=== PATIENT | female | born 1970 | race Caucasian/White ===

== ENCOUNTER 2022-06-23 15:37 | Emergency (ER) | payer MEDICAID, SELFPAY ==
[2022-06-23 17:00] VITALS: BMI 38.7
--- NOTE | 2022-06-23 17:12 | ED_ITS ---
HPI - Back Pain/Injury General: Chief Complaint: Back Pain/Injury Stated Complaint: Tingling and pain through left arm and leg Time Seen by Provider: 06/23/22 17:10 History of Present Illness: 51-year-old female comes in today with complaints of low back pain, left hip pain and left knee pain. Patient reports symptoms for about 3 to 4 days with worsening pain to the left knee. Patient reports tenderness runs on the anterior part of the left knee area. Patient does have a history of chronic back pain and fibromyalgia. Patient does already take hydrocodone and ibuprofen for pain. Patient appears nontoxic. Patient appears in mild pain. Associated symptoms: Deny fever(s) Review of Systems Const: Denies: fever(s) Card: Denies: chest pain Resp: Denies: dyspnea Musc: Reports: extremity pain Neuro: Reports: numbness in extremities (Left arm) Physical Exam Const: COMMON NORMALS: alert HENMT: COMMON NORMALS: normocephalic and Normal external nose present HEAD & SCALP: normocephalic NOSE: Normal external nose present MOUTH: Normal oral and palatal mucosa present Neck/C-Spine: COMMON NORMALS: full ROM CERVICAL SPINE: No Cervical spine tenderness Resp: COMMON NORMALS: normal respiratory effort Cardio: COMMON NORMALS: regular rate and regular rhythm RATE: regular rate RHYTHM: regular rhythm Back/Pelvis: THORACIC SPINE/UPPER BACK: No thoracic spinal tenderness LUMBAR SPINE/LOWER BACK: No lumbar spinal tenderness Extremity: COMMON NORMALS: normal to inspection and full ROM LEFT LOWER EXTREMITY: Yes knee joint (Anterior proximal knee tenderness) Left knee: Yes inspection, Yes palpation and Yes ROM Neuro: SENSORIUM/ORIENTATION: Yes alert MDM - Back Pain/Injury Medical Decision Making 51-year-old female comes in today for complaints of left knee pain. Patient had seen her physician and he wanted her to have some x-rays done this week from an appointment he saw on her last Thursday. Today patient had worsening pain to the left knee and came in to be evaluated further due to her pain. On exam patient has tenderness to the anterior left knee. Loss of joint space and is noted to the knee. Distal pulses and sensation are intact. No spinal tenderness is noted. No inguinal tenderness or left buttock tenderness is noted. Differential diagnosis includes but not limited to osteoarthritis, lumbar radiculopathy, meniscal injury, patellofemoral syndrome. X-ray of the hip, lumbar spine, and knee noted no acute abnormalities. Patient was written a prescription for some diclofenac to 75 mg 1 tablet twice a day to see if she may get better relief for her knee pain with it. Patient was instructed not to use naproxen or ibuprofen with it. Patient reported understanding and agreed to plan. Discharge Plan Discharge Patient Disposition: Home Clinical Impression: Osteoarthritis of left knee Qualifiers: Osteoarthritis type: unspecified Qualified Code(s): M17.12 - Unilateral primary osteoarthritis, left knee Condition: Stable Prescriptions: New diclofenac sodium 75 mg tablet,delayed release (DR/EC) 75 mg PO BID Qty: 20 0RF Discharge Orders: Discharge ED (Routine); Ordered 06/23/22 Ordered By: Dawson Wagner Discharge Diet: Usual diet Discharge Activity: Increase activity as tolerated Patient Instructions: Knee Pain (ED) Activity Restrictions/Additional Instructions: Use diclofenac 75 mg 1 tablet twice a day for pain and inflammation. Do not use naproxen or ibuprofen for your pain. Follow-up with primary care for further instructions and evaluation. Return to ER for new concerns or worsening symptoms such as high fever, increasing redness and swelling to the leg in the. 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
--- NOTE | 2022-06-23 17:19 | XRR_ITS ---
PROCEDURE INFORMATION: Exam: XR Left Knee Exam date and time: 06/23/2022 5:26 PM Age: 51 years old Clinical indication: Pain; Knee; Left; Additional info: Left knee pain TECHNIQUE: Imaging protocol: Radiologic exam of the Left knee. Views: 3 views. COMPARISON: No relevant prior studies available. FINDINGS: Bones/joints: Small osteophytes at the tibial spines, medial compartment, and patellofemoral joint. No acute fracture. No dislocation. Normal bone mineralization. No joint effusion. Joint spaces are maintained. Soft tissues: No soft tissue swelling. No radiopaque foreign body. XR/XR knee LT 3V* [id number] IMPRESSION: 1. No acute fracture of the left knee. Followup imaging recommended in 7-14 days if clinical concern for fracture persists. 2. Mild degenerative changes present at the left knee.
--- NOTE | 2022-06-23 17:19 | XRR_ITS ---
PROCEDURE INFORMATION: Exam: XR Lumbosacral Spine Exam date and time: 06/23/2022 5:26 PM Age: 51 years old Clinical indication: Low back pain; Additional info: Lumbar radiculopathy TECHNIQUE: Imaging protocol: Radiologic exam of the lumbosacral spine. Views: 2 or 3 views. COMPARISON: No relevant prior studies available. FINDINGS: Bones/joints: 5 [id number] vertebral bodies. Vertebral body height is maintained. No subluxation. Normal bone mineralization. Small osteophytes at all visualized spinal levels. Mild loss of disc space height at multiple spinal levels. Mild to moderate facet hypertrophy at all lumbar spinal levels. No acute fracture. Soft tissues: No paravertebral soft tissue abnormality. No radiopaque foreign body. Intraperitoneal space: Surgical sutures in the right mid abdomen. XR/XR lumbar spine 2-3V* [id number] IMPRESSION: 1. No acute fracture of the lumbar spine. CT scan would be recommended if there is continuing clinical concern for fracture. 2. Multilevel degenerative changes of varying severity in the visualized spine.
--- NOTE | 2022-06-23 17:19 | XRR_ITS ---
PROCEDURE INFORMATION: Exam: XR Left Hip Exam date and time: 06/23/2022 5:26 PM Age: 51 years old Clinical indication: Hip pain; Left hip; Additional info: Left hip pain TECHNIQUE: Imaging protocol: Radiologic exam of the Left hip. Views: 2 or 3 views hip with pelvis when performed. COMPARISON: No relevant prior studies available. FINDINGS: Bones/joints: No acute fracture. No dislocation. Normal bone mineralization. No joint effusion. Joint spaces are maintained. Soft tissues: No soft tissue swelling. No radiopaque foreign body. XR/XR hip LT 2-3V wo/w pel* [id number] IMPRESSION: No acute fracture. MRI of the pelvis would be recommended if clinical concern for fracture persists.
== END 2022-06-23 18:02 | disposition home or self-care (01) ==
PROVIDERS: Emergency Provider Nurse Practitioner Family
DX: M17.12 Unilateral primary osteoarthritis, left knee (principal)
CPT/HCPCS: 72100; 73502; 73562; 99283

== ENCOUNTER 2022-07-29 15:46 | Outpatient (CLI) | payer MEDICAID, SELFPAY ==
--- NOTE | 2022-07-29 15:59 | MR_ITS ---
WS: [id number] MRI LUMBAR SPINE NONCONTRAST HISTORY: SCIATICA, LEFT SIDE COMPARISON: Radiograph 06/23/2022 TECHNIQUE: Sagittal and axial multisequence imaging is submitted. Mild straightening of the normal cervical and thoracic spines. 2 mm anterolisthesis of L4. No fracture or marrow edema. Mild disc space narrowing and desiccation. Conus terminates normally at L1-2 disc level. T11 and T12 hemangiomas. T10-11, T11-12 and T12-L1 annular disc bulging and possible central disc protrusions. Seen only on th e sagittal projection. Small disc protrusion at T12-L1 has migrated cephalad. There is contact on the ventral thoracic cord. L1-L2: Normal. L2-L3: Mild facet and ligamentum flavum hypertrophy. L3-L4: Mild disc bulging. Mild ligamentum flavum and facet arthritis. No significant stenosis. L4-L5: Mild annular disc bulging. Moderate to severe facet joint arthritis with encroachment into the posterior lateral thecal sac. Moderate RIGHT and mild LEFT foraminal stenosis. Mild subarticular rec ess encroachment. L5-S1: Mild annular disc bulging. No significant stenosis. Paravertebral soft tissues are normal. MR/MR lumbar spine wo con* [id number] IMPRESSION: 1. Moderate RIGHT and mild LEFT foraminal stenosis and mild subarticular reces s encroachment at L4-5. 2. Extruded disc extends cephalad to T12-L1 with contact and deformity of the ventral thoracic cord. Recommend follow-up MRI thoracic spine to further charac terize the disc protrusion and amount of stenosis.
== END 2022-07-29 15:47 | disposition home or self-care (01) ==
LOC: RAD 15:47
PROVIDERS: PCP Family Medicine; Visit Provider Family Medicine
DX: M54.32 Sciatica, left side (principal)
CPT/HCPCS: 72148

== ENCOUNTER 2022-08-11 14:14 | Outpatient (CLI) | payer MEDICAID, SELFPAY ==
--- NOTE | 2022-08-11 | MR_ITS ---
WS: [id number] MRI LEFT KNEE HISTORY: Pain for 3 months. COMPARISON: 06/23/2022 Anterior cruciate ligament: Intact. Posterior cruciate ligament: Intact. Medial collateral ligament: Small amount of fluid adjacent to the MCL but no full-thickness tear. Posterior lateral corner structures: Intact. Medial menisci: Horizontal tear posterior horn. Abnormal signal extends into the meniscal root. Tear appears to extend to the superior articular surface. Anterior horn is intact. Lateral meniscus: Intrasubstance degeneration but no tear. Extensor mechanism: Distal quadriceps tendon and patellar tendons are intact. Fluid and soft tissue: Moderate to large joint effusion. Edema surrounds the femoral condyles. No Aaron er's cyst. Osseous and articular structures: Patellofemoral compartment: Near complete loss of cartilage involving the lateral patellar facet with slight lateral subluxation of the patella. Medial compartment: Moderate to severe narrowing with marrow edema on both sides of the joint space. Significant chondromalacia. Small marginal osteophytes from the joint line. Lateral compartment: Mild narrowing of the lateral compartment. A small amount of edema and subchondr al cystic changes along the mid lateral tibial plateau. Small osteophytes at the joint line. MR/MR knee LT wo con* [id number] IMPRESSION: 1. Moderate to large joint effusion. 2. Severe chondromalacia lateral patellar facet. 3. Moderate to severe joint space narrowing with marrow edema and loss of cart ilage involving the medial compartment. 4. Horizontal tear posterior horn medial meniscus contacts the superior articu lar surface and extends into the meniscal root.
== END 2022-08-11 14:15 | disposition home or self-care (01) ==
LOC: RAD 14:14
PROVIDERS: PCP Family Medicine; Visit Provider Family Medicine
DX: M25.552 Pain in left hip (principal)
CPT/HCPCS: 73721

== ENCOUNTER 2022-09-04 09:21 | Outpatient (CLI) | payer MEDICAID, SELFPAY ==
--- NOTE | 2022-09-04 | MR_ITS ---
WS: [id number] MRI LEFT HIP WITHOUT AND WITH GADOLINIUM ENHANCEMENT. INDICATION: LEFT hip pain TECHNIQUE: Axial T1, axial T2, coronal T1 coronal STIR sagittal T2, sagittal T1, multiplanar post devaughn olinium imaging with fat saturation technique. FINDINGS: Normal bone marrow signal in the LEFT acetabulum and LEFT proximal femur. No acute appearin g LEFT hip fractures. Normal femoral head and neck. No significant joint effusion. No evidence of vilma scular necrosis. RIGHT hip is normal in appearance. No bone marrow edema. Normal bone marrow signal i n the bony pelvis and sacrum. Normal visualized pubic rami. Sclerotic lesion adjacent to the RIGHT sacroiliac joint. No enhancement or edema. This appears stable since the prior radiograph June 23, 2022. This measures approximately 14 mm. Additional smaller l ow signal lesion involving the RIGHT iliac wing measuring 11 mm. No enhancement. Bone scan could be p erformed in further evaluation to ensure no radiotracer activity or additional lesions. Sigmoid diver ticulosis. MR/MR hip LT wo/w con [id number] IMPRESSION: 1. Normal bone marrow signal in the LEFT hip and femur. No acute fractures. No bone marrow edema. 2. Mild degenerative narrowing both hips bilaterally. No significant joint eff usion. 3. Normal bone marrow signal in the bony pelvis and sacrum. No acute sacral fr actures. 4. Sclerotic lesion in the RIGHT ilium adjacent to the SI joint measuring 14 m m unchanged since the prior radiograph. Additional sclerotic lesion involving t he RIGHT iliac wing measuring 11 mm. Recommend bone scan and further evaluation to ensure no radiotracer activity and to exclude additional lesions. This is n onspecific but may represent benign bone islands. No enhancement. 5. Sigmoid diverticulosis. 6. No other suspicious findings.
[2022-09-04] MEDS: gadobenate dimeglumine 20 mL vial IV (10:18)
== END 2022-09-04 09:22 | disposition home or self-care (01) ==
LOC: RAD 09:22
PROVIDERS: PCP Family Medicine; Visit Provider Family Medicine
DX: M25.552 Pain in left hip (principal); K57.30 Diverticulosis of large intestine without perforation or abscess without bleeding
CPT/HCPCS: 73723; A9577

== ENCOUNTER 2023-06-29 11:38 | Outpatient (CLI) | payer MEDICAID, SELFPAY ==
--- NOTE | 2023-06-29 12:15 | USCV_ITS ---
Rolanda Mistry Age: 52 Gender: F : 1970 Exam Date: 06/29/2023 12:17 Ordering Phys: Julieth Pond DO Technologist: NOAH Exam Location: [facility] – [place] Indication: SOB, CP BP: 118 / 70 HR: 84 Rhythm: Sinus Technical Quality: Adequate MEASUREMENTS (Male / Female) Normal Values 2D ECHO LV Diastolic Diameter PLAX 4.0 cm 4.2 - 5.9 / 3.9 - 5.3 cm LV Systolic Diameter PLAX 1.8 cm IVS Diastolic Thickness 1.0 cm 0.6 - 1.0 / 0.6 - 0.9 cm IVS Systolic Thickness 2.4 cm LVPW Diastolic Thickness 0.7 cm 0.6 - 1.0 / 0.6 - 0.9 cm LVPW Systolic Thickness 1.8 cm LVOT Diameter 2.3 cm LV Ejection Fraction 2D Teich 86.9 % LV Ejection Fraction MOD 2C 62.1 % LV Ejection Fraction 2C AL 61.5 % LA Diameter 3.9 cm LA Width 3.3 cm LA Height 4.4 cm RA Width 4.2 cm RA Height 5.0 cm Aorta at Sinotubular Diameter 3.0 cm IVC Diameter 1.0 cm M-MODE Aortic Annulus Diameter 2.8 cm LA Ao Ratio MM 1.3 MV E Point Septal Separation 0.6 cm DOPPLER AV Peak Velocity 186.0 cm/s LVOT Peak Velocity 142.0 cm/s AV Area Cont Eq vti 3.6 cm squared AV Area Cont Eq pk 3.1 cm squared MV Peak Velocity 124.0 cm/s MV Area PHT 3.7 cm squared Mitral E to A Ratio 1.1 MV E' Velocity 59.5 cm/s Mitral E to MV E' Ratio 12.5 Mitral E to LV E' Lateral Ratio 9.8 Mitral E to LV E' Septal Ratio 17.4 TR Peak Velocity 123.0 cm/s TR Peak Gradient 6.1 mmHg Right Atrial Pressure 5.0 mmHg Pulmonary Artery Systolic Pressu 11.1 mmHg PV Peak Velocity 108.0 cm/s RV Acceleration Time 0.1 s RV Ejection Time 0.3 s RV AcT/ET 0.4 FINDINGS Left Ventricle Left ventricle is normal in size. LV systolic function is normal with EF of 55 to 60%. No regional wall motion abnormalities are seen. Right Ventricle Normal in size and function Right Atrium Normal in size Left Atrium Normal in size Mitral Valve Structurally normal mitral valve. Trace mitral regurgitation Aortic Valve Structurally normal aortic valve. No significant stenosis or regurgitation. Tricuspid Valve Mild tricuspid regurgitation. Insufficient TR jet to calculate RVSP. Pulmonic Valve Not well-visualized Pericardium Normal Aorta Normal in size IVC Appears to be normal CONCLUSIONS LV systolic unction is normal with EF 55 to 60%. Trace mitral regurgitation Mild tricuspid regurgitation No comparison studies are available Pedro Hernandez MD (Electronically Signed) Final Date: 30 June 2023 08:31 S
== END 2023-06-29 11:39 | disposition home or self-care (01) ==
LOC: RAD 11:38
PROVIDERS: PCP Family Medicine; Visit Provider Family Medicine
DX: R07.9 Chest pain, unspecified (principal); R06.02 Shortness of breath; I07.1 Rheumatic tricuspid insufficiency
CPT/HCPCS: 93306

== ENCOUNTER 2025-01-26 19:30 | Emergency (ER) | payer MEDICAID, SELFPAY ==
--- NOTE | 2025-01-26 19:38 | ECG_ITS ---
[facility] Test Date: 2025-01-26 Pat Name: Rolanda Mistry Department: Room: Gender: Female Interventional Neuroradiologist: : 1970 Requested By: Conrado Reynolds Order Number: [id number] Templeton MD: Pedro Hernandez M.D. Measurements Intervals [place] Rate: 105 P: 20 IA: 161 QRS: -45 QRSD: 94 T: 53 QT: 333 QTc: 441 Interpretive Statements SINUS TACHYCARDIA LOW QRS VOLTAGE IN PRECORDIAL LEADS [QRS DEFLECTION < 1.0 mV IN CHEST LEADS] S1-S2-S3 PATTERN, CONSISTENT WITH PULMONARY DISEASE, RVH, OR NORMAL VARIANT INCOMPLETE RIGHT BUNDLE BRANCH BLOCK [90+ ms QRS DURATION, TERMINAL R IN V1/V2, 40+ ms S IN I/aVL/V4/V5/V6] LEFT ANTERIOR FASCICULAR BLOCK [QRS AXIS <= -45, QR IN I, RS IN II] POSSIBLE ANTERIOR MYOCARDIAL INFARCTION , PROBABLY OLD [30 ms Q WAVE IN V3/V4, OR R < 0.2 mV IN V4] No previous ECG available for comparison Electronically Signed On 01-31-2025 11:48:54 CDT by Pedro Hernandez M.D. [email or web address]
[2025-01-26 19:39] VITALS: BP 120/81; PULSE 102; RESP 20; TEMP 36.8; O2SAT 95; BMI 35.4
== END 2025-01-26 20:53 | disposition left against medical advice (07) ==
LOC: ER 19:35
PROVIDERS: Emergency Provider Family Medicine; PCP Family Medicine
DX: R00.0 Tachycardia, unspecified (principal); I44.4 Left anterior fascicular block; R94.31 Abnormal electrocardiogram [ECG] [EKG]
CPT/HCPCS: 93005